=== PATIENT | male | born 1990 | race Caucasian/White ===

== ENCOUNTER 2021-01-23 12:03 | Day surgery (SDC) | payer BC ==
[2021-01-23] MEDS ORDERED: Ondansetron 4 MG/2 ML SDV IVPUSH ONE (12:37)
[2021-01-23] MEDS ORDERED: Sodium Chloride 0.9% 1,000 ML IV STA (12:37)
[2021-01-23] MEDS: Sodium Chloride 0.9% 10 ML Syringe FLUSH PRN ×2 (12:56→13:55)
[2021-01-23] MEDS ORDERED: Diatrizoate Meglumine/Diatrizoate Sodium 37% 120 ML Bottle PO ONE (13:00)
[2021-01-23] MEDS ORDERED: Iopamidol 612 MG/ML 100 ML Bottle IVPUSH ONE (13:00)
[2021-01-23] MEDS ORDERED: Sodium Chloride 0.9% 10 ML Syringe FLUSH ONE (13:00)
[2021-01-23] MEDS ORDERED: Iopamidol 612 MG/ML 50 ML SDV IVPUSH ONE (13:00)
--- NOTE | 2021-01-23 14:25 | CT ---
CT abdomen and pelvis Technique: Multiple axial sections were obtained from above the dome of the diaphragm inferiorly through the pubic symphysis. Intravenous contrast was utilized. Oral contrast is also noted. Delayed images were obtained through the bladder. Reconstructed coronal and sagittal images were obtained. Comparison: No previous abdomen and pelvis imaging is available. Findings: Appendix is seen and appears mildly prominent in size measuring up to 1.0 cm. Mild inflammatory change is seen around the appendix which is compatible with appendicitis. Visualized lung bases show nothing acute. Liver shows no focal abnormality. Spleen appears within normal limits. Adrenal glands show no nodules. Pancreas is within normal limits. Gallbladder contains no calcified gallstones. Abdominal aorta shows no aneurysm. Kidneys show symmetric contrast enhancement with no hydronephrosis or mass. No retroperitoneal adenopathy or mesenteric abnormalities are seen. No pelvic mass or adenopathy is appreciated. Minimal fat-containing umbilical hernia is incidentally noted. Delayed images show contrast within the distal ureters and the bladder. Bone settings were reviewed which show mild scattered degenerative change within the spine. Impression: 1. Findings as described above compatible with early appendicitis. 2. Other normal findings as described above. Results were given to Dr. Nielsen by phone at 2:04 PM MDT. Diagnostic code #5
[2021-01-23] MEDS ORDERED: Piperacillin/Tazobactam 4.5 GM in Sodium Chloride 0.9% 100 ML IV SCH (14:45)
--- NOTE | 2021-01-23 14:54 | EDM.PDOC ---
ED HPI GENERAL MEDICAL PROBLEM - General Chief Complaint: Abdominal Pain Stated Complaint: SENT BY [facility] Time Seen by Provider: 01/23/21 12:13 Source of Information: Reports: Patient, Provider History Limitations: Reports: No Limitations - History of Present Illness INITIAL COMMENTS - FREE TEXT/NARRATIVE: The patient presents from [facility] for right lower abdominal pain and possible appendicitis. He said the pain started yesterday. He has no nausea or vomiting. He has no fever, chills, cough, chest pain, shortness of breath, diarrhea or dysuria. He still has an appendix and gallbladder. Onset: Gradual Duration: Day(s): (2) Location: Reports: Abdomen Quality: Reports: Sharp Severity: Moderate Improves with: Reports: None Worsens with: Reports: None Associated Symptoms: Reports: No Other Symptoms Right Abdominal Pain Score (Numeric/FACES): 6 - Related Data Allergies Allergy/AdvReac Type Severity Reaction Status Date / Time No Known Allergies Allergy Verified 01/23/21 12:14 Home Meds: Home Meds . [No Known Home Meds] 01/23/21 [History] Past Medical History - Past Health History Medical/Surgical History: Denies Medical/Surgical History Social & Family History - Tobacco Use Tobacco Use Status *Q: Current Every Day Tobacco User Years of Tobacco use: 10 Packs/Tins Daily: 1 - Caffeine Use Caffeine Use: Reports: Soda - Recreational Drug Use Recreational Drug Use: No ED ROS GENERAL - Review of Systems Review Of Systems: See Below Constitutional: Reports: No Symptoms HEENT: Reports: No Symptoms Respiratory: Reports: No Symptoms Cardiovascular: Reports: No Symptoms Endocrine: Reports: No Symptoms GI/Abdominal: Reports: Abdominal Pain. Denies: Diarrhea, Nausea, Vomiting : Reports: No Symptoms ED EXAM, GI/ABD - Physical Exam Exam: See Below Exam Limited By: No Limitations General Appearance: Alert, No Apparent Distress Ears: Normal External Exam Nose: Normal Inspection Head: Atraumatic, Normocephalic Neck: Normal Inspection Respiratory/Chest: No Respiratory Distress, Lungs Clear, Normal Breath Sounds Cardiovascular: Regular Rate, Rhythm, No Edema, No Murmur GI/Abdominal Exam: Soft, No Organomegaly, No Mass, Tender (Moderate tenderness to the right lower abdomen) Course - Vital Signs Last Recorded V/S: Last Vital Signs Temp 97.7 F 01/23/21 12:12 Pulse 99 01/23/21 12:12 Resp 19 01/23/21 12:12 BP 131/81 01/23/21 12:12 Pulse Ox 100 01/23/21 12:12 - Orders/Labs/Meds Orders: Active Orders 24 hr Category Date Time Status Peripheral IV Care [RC] . DIRECTED Care 01/23/21 12:38 Active CORONAVIRUS COVID-19 JUSTIN [MOLEC] Stat Lab 01/23/21 14:35 Received Piperacillin/Tazobactam [Piperacil-Tazobact] 4.5 gm Med 01/23/21 14:45 Active Sodium Chloride 0.9% [Normal Saline] 100 ml IV Q8H Sodium Chloride 0.9% [Saline Flush] Med 01/23/21 12:37 Active 10 ml FLUSH ASDIRECTED PRN ED Antiemetic Medication Reflex [OM.PC] Stat Oth 01/23/21 12:38 Ordered Peripheral IV Insertion Adult [OM.PC] Stat Oth 01/23/21 12:37 Ordered Medication Orders Piperacillin Sod/Tazobactam (Sod 4.5 gm/ Sodium Chloride) 100 mls @ 25 mls/hr IV Q8H CHRIS Sodium Chloride (Sodium Chloride 0.9% 10 Ml Syringe) 10 ml FLUSH ASDIRECTED PRN PRN Reason: Keep Vein Open Last Admin: 01/23/21 13:55 Dose: 10 ml Documented by: Admin: 01/23/21 12:56 Dose: 10 ml Documented by: MARKELL Labs: Laboratory Tests 01/23/21 01/23/21 01/23/21 Range/Units 12:55 12:55 13:00 WBC 8.99 (4.23-9.07) K/mm3 RBC 5.10 (4.63-6.08) M/mm3 Hgb 15.0 (13.7-17.5) gm/dl Hct 45.1 (40.1-51.0) % MCV 88.4 (79.0-92.2) fl MCH 29.4 (25.7-32.2) pg MCHC 33.3 (32.2-35.5) g/dl RDW Std Deviation 41.5 (35.1-43.9) fL Plt Count 265 (163-337) K/mm3 MPV 10.2 (9.4-12.3) fl Neut % (Auto) 63.7 (34.0-67.9) % Lymph % (Auto) 25.6 (21.8-53.1) % [place] % (Auto) 8.8 (5.3-12.2) % Eos % (Auto) 1.6 (0.8-7.0) Baso % (Auto) 0.2 (0.1-1.2) % Neut # (Auto) 5.73 H (1.78-5.38) K/mm3 Lymph # (Auto) 2.30 (1.32-3.57) K/mm3 [place] # (Auto) 0.79 (0.30-0.82) K/mm3 Eos # (Auto) 0.14 (0.04-0.54) K/mm3 Baso # (Auto) 0.02 (0.01-0.08) K/mm3 Sodium 143 (136-145) mEq/L Potassium 4.0 (3.5-5.1) mEq/L Chloride 108 H (98-107) mEq/L Carbon Dioxide 28 (21-32) mEq/L Anion Gap 11.0 (5-15) BUN 16 (7-18) mg/dL Creatinine 1.5 H (0.7-1.3) mg/dL Est Cr Clr Drug Dosing 82.20 mL/min Estimated GFR (MDRD) 54 (>60) mL/min BUN/Creatinine Ratio 10.7 L (14-18) Glucose 88 (70-99) mg/dL Calcium 8.6 (8.5-10.1) mg/dL Total Bilirubin 0.4 (0.2-1.0) mg/dL AST 20 (15-37) U/L ALT 46 (16-63) U/L Alkaline Phosphatase 67 (46-116) U/L Total Protein 7.3 (6.4-8.2) g/dl Albumin 3.8 (3.4-5.0) g/dl Globulin 3.5 gm/dL Albumin/Globulin Ratio 1.1 (1-2) Lipase 122 (73-393) U/L Urine Color Yellow (Yellow) Urine Appearance Clear (Clear) Urine pH 6.5 (5.0-8.0) Ur Specific [place] 1.025 (1.005-1.030) Urine Protein Negative (Negative) Urine Glucose (UA) Negative (Negative) Urine Ketones Negative (Negative) Urine Occult Blood Negative (Negative) Urine Nitrite Negative (Negative) Urine Bilirubin Negative (Negative) Urine Urobilinogen 0.2 (0.2-1.0) Ur Leukocyte Esterase Negative (Negative) Urine RBC Not seen (0-5) /hpf Urine WBC Not seen (0-5) /hpf Ur Epithelial Cells 0-5 (0-5) /hpf Urine Bacteria Rare (FEW) /hpf Urine Mucus Not seen (FEW) /hpf Meds: Medications Generic Name Dose Route Start Last Admin Trade Name Freq PRN Reason Stop Dose Admin Piperacillin Sod/Tazobactam 100 mls @ 25 mls/hr 01/23/21 14:45 Sod 4.5 gm/ Sodium Chloride IV Q8H CHRIS Sodium Chloride 10 ml 01/23/21 12:37 01/23/21 13:55 Sodium Chloride 0.9% 10 Ml Syringe FLUSH 10 ml ASDIRECTED PRN Administration Keep Vein Open Discontinued Medications Generic Name Dose Route Start Last Admin Trade Name Freq PRN Reason Stop Dose Admin Diatrizoate Meglum/Diatrizoate Sod 90 ml 01/23/21 13:00 01/23/21 13:56 Diatrizoate Meglumine/Diatrizoate Sodium 37% 120 Ml Bottle PO 01/23/21 13:01 45 ml ONETIME ONE Administration Sodium Chloride 1,000 mls @ 1,000 mls/hr 01/23/21 12:37 01/23/21 12:55 Normal Saline IV 01/23/21 13:36 1,000 mls/hr .BOLUS STA Administration Iopamidol 100 ml 01/23/21 13:00 01/23/21 13:54 Iopamidol 612 Mg/Ml 100 Ml Bottle IVPUSH 01/23/21 13:01 100 ml ONETIME ONE Administration Iopamidol 50 ml 01/23/21 13:00 01/23/21 13:54 Iopamidol 612 Mg/Ml 50 Ml Sdv IVPUSH 01/23/21 13:01 50 ml ONETIME ONE Administration Ondansetron HCl 4 mg 01/23/21 12:37 01/23/21 12:56 Ondansetron 4 Mg/2 Ml Sdv IVPUSH 01/23/21 12:38 4 mg ONETIME ONE Administration Sodium Chloride 10 ml 01/23/21 13:00 01/23/21 13:34 Sodium Chloride 0.9% 10 Ml Syringe FLUSH 01/23/21 13:01 10 ml ONETIME ONE Administration - Re-Assessments/Exams Free Text/Narrative Re-Assessment/Exam: 01/23/21 14:51 I ordered an IV NS 1L bolus, zofran 4mg IV, labs, UA and a CT of his abdomen and pelvis. His CBC and CMP look good. His UA shows no UTI. The CT shows appendix is seen and appears mildly prominent in size measuring up to 1cm. Mild inflammatory change is seen around the appendix which is compatible with appendicitis. I called Dr Travis and she will come see the patient. She requested Zosyn be given so I have ordered that. Departure - Departure Time of Disposition: 15:00 Disposition: DC/Tfer to [facility] Condition: Fair Clinical Impression: Appendicitis Qualifiers: Appendicitis type: acute appendicitis Acute appendicitis type: with localized peritonitis Appendicitis gangrene presence: without gangrene Appendicitis perforation presence: without perforation Appendicitis abscess presence: without abscess Qualified Code(s): K35.30 - Acute appendicitis with localized peritonitis, without perforation or gangrene - Discharge Information Referrals: Robyn Starr PROCUREMENT INSPECTOR [Primary Care Provider] - Sepsis Event Note (ED) - Evaluation Sepsis Screening Result: No Definite Risk - Focused Exam Vital Signs: Vital Signs Temp Pulse Resp BP Pulse Ox 01/23/21 12:12 97.7 F 99 19 131/81 100 - My Orders Last 24 Hours: My Active Orders 01/23/21 12:37 Sodium Chloride 0.9% [Saline Flush] 10 ml FLUSH ASDIRECTED PRN Peripheral IV Insertion Adult [OM.PC] Stat 01/23/21 12:38 Peripheral IV Care [RC] . DIRECTED ED Antiemetic Medication Reflex [OM.PC] Stat 01/23/21 14:35 CORONAVIRUS COVID-19 JUSTIN [MOLEC] Stat 01/23/21 14:45 Piperacillin/Tazobactam [Piperacil-Tazobact] 4.5 gm Sodium Chloride 0.9% [Normal Saline] 100 ml IV Q8H - Assessment/Plan Last 24 Hours: My Active Orders 01/23/21 12:37 Sodium Chloride 0.9% [Saline Flush] 10 ml FLUSH ASDIRECTED PRN Peripheral IV Insertion Adult [OM.PC] Stat 01/23/21 12:38 Peripheral IV Care [RC] . DIRECTED ED Antiemetic Medication Reflex [OM.PC] Stat 01/23/21 14:35 CORONAVIRUS COVID-19 JUSTIN [MOLEC] Stat 01/23/21 14:45 Piperacillin/Tazobactam [Piperacil-Tazobact] 4.5 gm Sodium Chloride 0.9% [Normal Saline] 100 ml IV Q8H
--- NOTE | 2021-01-23 15:06 | PCM.PREANE ---
Preanesthetic Assessment - Procedure Proposed Procedure: Laparoscopic Appendectomy - Anesthesia/Transfusion/Family Hx Anesthesia History: Prior Anesthesia Without Reaction Family History of Anesthesia Reaction: No Transfusion History: No Prior Transfusion(s) Intubation History: Unknown - Review of Systems General: No Symptoms Pulmonary: No Symptoms (Smoker: 5cigarettes/day/ 1/4 can chew per day/ETOH: rarely) Cardiovascular: No Symptoms, Palpitations Gastrointestinal: No Symptoms (gerd/swallows chew juice.), Abdominal Pain (2/10), Diarrhea, Nausea Neurological: No Symptoms Other: Reports: None, Sinus Problem (congestion chronic) - Physical Assessment NPO Status Date: 01/23/21 NPO Status Time: 11:30 Vital Signs: Last Vital Signs Temp 36.5 C 01/23/21 12:12 Pulse 99 01/23/21 12:12 Resp 19 01/23/21 12:12 BP 131/81 01/23/21 12:12 Pulse Ox 100 01/23/21 12:12 Height: 1.88 m Weight: 137.892 kg ASA Class: 3E Mental Status: Alert & Oriented x3 Airway Class: Mallampati = 2 Dentition: Reports: Normal Dentition, Caries Thyro-Mental Finger Breadths: 3 Mouth Opening Finger Breadths: 3 ROM/Head Extension: Full Lungs: Clear to Auscultation, Normal Respiratory Effort Cardiovascular: Regular Rate, Regular Rhythm, No Murmurs - Lab Values: Laboratory Last Values WBC 8.99 K/mm3 (4.23-9.07) 01/23/21 12:55 RBC 5.10 M/mm3 (4.63-6.08) 01/23/21 12:55 Hgb 15.0 gm/dl (13.7-17.5) 01/23/21 12:55 Hct 45.1 % (40.1-51.0) 01/23/21 12:55 MCV 88.4 fl (79.0-92.2) 01/23/21 12:55 MCH 29.4 pg (25.7-32.2) 01/23/21 12:55 MCHC 33.3 g/dl (32.2-35.5) 01/23/21 12:55 RDW Std Deviation 41.5 fL (35.1-43.9) 01/23/21 12:55 Plt Count 265 K/mm3 (163-337) 01/23/21 12:55 MPV 10.2 fl (9.4-12.3) 01/23/21 12:55 Neut % (Auto) 63.7 % (34.0-67.9) 01/23/21 12:55 Lymph % (Auto) 25.6 % (21.8-53.1) 01/23/21 12:55 [place] % (Auto) 8.8 % (5.3-12.2) 01/23/21 12:55 Eos % (Auto) 1.6 (0.8-7.0) 01/23/21 12:55 Baso % (Auto) 0.2 % (0.1-1.2) 01/23/21 12:55 Neut # (Auto) 5.73 K/mm3 (1.78-5.38) H 01/23/21 12:55 Lymph # (Auto) 2.30 K/mm3 (1.32-3.57) 01/23/21 12:55 [place] # (Auto) 0.79 K/mm3 (0.30-0.82) 01/23/21 12:55 Eos # (Auto) 0.14 K/mm3 (0.04-0.54) 01/23/21 12:55 Baso # (Auto) 0.02 K/mm3 (0.01-0.08) 01/23/21 12:55 Sodium 143 mEq/L (136-145) 01/23/21 12:55 Potassium 4.0 mEq/L (3.5-5.1) 01/23/21 12:55 Chloride 108 mEq/L (98-107) H 01/23/21 12:55 Carbon Dioxide 28 mEq/L (21-32) 01/23/21 12:55 Anion Gap 11.0 (5-15) 01/23/21 12:55 BUN 16 mg/dL (7-18) 01/23/21 12:55 Creatinine 1.5 mg/dL (0.7-1.3) H 01/23/21 12:55 Est Cr Clr Drug Dosing 82.20 mL/min 01/23/21 12:55 Estimated GFR (MDRD) 54 mL/min (>60) 01/23/21 12:55 BUN/Creatinine Ratio 10.7 (14-18) L 01/23/21 12:55 Glucose 88 mg/dL (70-99) 01/23/21 12:55 Calcium 8.6 mg/dL (8.5-10.1) 01/23/21 12:55 Total Bilirubin 0.4 mg/dL (0.2-1.0) 01/23/21 12:55 AST 20 U/L (15-37) 01/23/21 12:55 ALT 46 U/L (16-63) 01/23/21 12:55 Alkaline Phosphatase 67 U/L (46-116) 01/23/21 12:55 Total Protein 7.3 g/dl (6.4-8.2) 01/23/21 12:55 Albumin 3.8 g/dl (3.4-5.0) 01/23/21 12:55 Globulin 3.5 gm/dL 01/23/21 12:55 Albumin/Globulin Ratio 1.1 (1-2) 01/23/21 12:55 Lipase 122 U/L (73-393) 01/23/21 12:55 Urine Color Yellow (Yellow) 01/23/21 13:00 Urine Appearance Clear (Clear) 01/23/21 13:00 Urine pH 6.5 (5.0-8.0) 01/23/21 13:00 Ur Specific [place] 1.025 (1.005-1.030) 01/23/21 13:00 Urine Protein Negative (Negative) 01/23/21 13:00 Urine Glucose (UA) Negative (Negative) 01/23/21 13:00 Urine Ketones Negative (Negative) 01/23/21 13:00 Urine Occult Blood Negative (Negative) 01/23/21 13:00 Urine Nitrite Negative (Negative) 01/23/21 13:00 Urine Bilirubin Negative (Negative) 01/23/21 13:00 Urine Urobilinogen 0.2 (0.2-1.0) 01/23/21 13:00 Ur Leukocyte Esterase Negative (Negative) 01/23/21 13:00 Urine RBC Not seen /hpf (0-5) 01/23/21 13:00 Urine WBC Not seen /hpf (0-5) 01/23/21 13:00 Ur Epithelial Cells 0-5 /hpf (0-5) 01/23/21 13:00 Urine Bacteria Rare /hpf (FEW) 01/23/21 13:00 Urine Mucus Not seen /hpf (FEW) 01/23/21 13:00 Above labs reviewed and noted and within acceptable ranges to proceed with procedure. - Allergies Allergies/Adverse Reactions: Allergies Allergy/AdvReac Type Severity Reaction Status Date / Time No Known Allergies Allergy Verified 01/23/21 12:14 - Anesthesia Plan Pre-Op Medication Ordered: None - Acknowledgements Anesthesia Type Planned: General Anesthesia Pt an Appropriate Candidate for the Planned Anesthesia: Yes Alternatives and Risks of Anesthesia Discussed w Pt/Guardian: Yes Pt/Guardian Understands and Agrees with Anesthesia Plan: Yes PreAnesthesia Questionnaire - Past Health History Medical/Surgical History: Denies Medical/Surgical History - SUBSTANCE USE Tobacco Use Status *Q: Current Every Day Tobacco User Tobacco Use Within Last Twelve Months: Cigarettes, Snuff/Dip Recreational Drug Use History: No - HOME MEDS Home Medications: Home Meds . [No Known Home Meds] 01/23/21 [History] - CURRENT (IN HOUSE) MEDS Current Meds: Current Medications Piperacillin Sod/Tazobactam (Sod 4.5 gm/ Sodium Chloride) 100 mls @ 25 mls/hr IV Q8H CHRIS Last Admin: 01/23/21 14:59 Dose: 25 mls/hr Documented by: Sodium Chloride (Sodium Chloride 0.9% 10 Ml Syringe) 10 ml FLUSH ASDIRECTED PRN PRN Reason: Keep Vein Open Last Admin: 01/23/21 13:55 Dose: 10 ml Documented by: Discontinued Medications Diatrizoate Meglum/Diatrizoate Sod (Diatrizoate Meglumine/Diatrizoate Sodium 37% 120 Ml Bottle) 90 ml PO ONETIME ONE Stop: 01/23/21 13:01 Last Admin: 01/23/21 13:56 Dose: 45 ml Documented by: Sodium Chloride (Normal Saline) 1,000 mls @ 1,000 mls/hr IV .BOLUS STA Stop: 01/23/21 13:36 Last Admin: 01/23/21 12:55 Dose: 1,000 mls/hr Documented by: Iopamidol (Iopamidol 612 Mg/Ml 100 Ml Bottle) 100 ml IVPUSH ONETIME ONE Stop: 01/23/21 13:01 Last Admin: 01/23/21 13:54 Dose: 100 ml Documented by: Iopamidol (Iopamidol 612 Mg/Ml 50 Ml Sdv) 50 ml IVPUSH ONETIME ONE Stop: 01/23/21 13:01 Last Admin: 01/23/21 13:54 Dose: 50 ml Documented by: Ondansetron HCl (Ondansetron 4 Mg/2 Ml Sdv) 4 mg IVPUSH ONETIME ONE Stop: 01/23/21 12:38 Last Admin: 01/23/21 12:56 Dose: 4 mg Documented by: Sodium Chloride (Sodium Chloride 0.9% 10 Ml Syringe) 10 ml FLUSH ONETIME ONE Stop: 01/23/21 13:01 Last Admin: 01/23/21 13:34 Dose: 10 ml Documented by:
[2021-01-23] MEDS ORDERED: Lidocaine 1% with EPINEPHrine 1:100,000 10 ML MDV ONE (15:10)
[2021-01-23] MEDS ORDERED: Bupivacaine 0.5%/EPINEPHrine 1:200,000 50 ML MDV ONE (15:11)
[2021-01-23] MEDS ORDERED: Succinylcholine/Sod PF 100 MG/5 ML SYRINGE IV ONE (15:21)
[2021-01-23] MEDS ORDERED: Dexamethasone 4 MG/ML 5 ML MDV ONE (15:21)
[2021-01-23] MEDS ORDERED: Ketorolac 15 MG/ML SDV ONE (15:21)
[2021-01-23] MEDS ORDERED: HYDROmorphone 0.5 MG/0.5 ML Syringe ONE ×2 (15:21→17:41)
[2021-01-23] MEDS ORDERED: Lidocaine 1% 4 ML ONE (15:21)
[2021-01-23] MEDS ORDERED: Rocuronium 50 MG/5 ML Vial ONE (15:21)
[2021-01-23] MEDS ORDERED: Ondansetron 4 MG/2 ML SDV ONE (15:21)
[2021-01-23] MEDS ORDERED: Lactated Ringers 2,000 ML ONE (15:21)
[2021-01-23] MEDS ORDERED: Midazolam 1 MG/ML 2 ML SDV ONE (15:23)
[2021-01-23] MEDS ORDERED: Propofol 200 MG/20 ML SDV ONE (15:23)
[2021-01-23] MEDS ORDERED: fentaNYL 250 MCG/5 ML SDV ONE (15:23)
[2021-01-23] MEDS ORDERED: Albuterol 0.083% 2.5 MG/3 ML Neb Soln NEB ONE (16:04)
[2021-01-23] MEDS ORDERED: Albuterol 0.083% 2.5 MG/3 ML Neb Soln ONE ×2 (16:05→18:11)
--- NOTE | 2021-01-23 17:01 | PCM.HP.2 ---
H&P History of Present Illness - General Date of Service: 01/23/21 Admit Problem/Dx: Admission Diagnosis/Problem Admission Diagnosis/Problem Appendicitis Source of Information: Patient, Provider History Limitations: Reports: No Limitations - History of Present Illness Initial Comments - Free Text/Narative: The patient is a 30-year-old gentleman who presented to the ED after transfer from an outside facility for concerns of appendicitis. He was evaluated in the emergency department with a CT scan which had findings of acute appendicitis. The patient reports a 1 day history of abdominal pain he reports the pain was in the lower abdomen but then localized to the right lower quadrant. He had associated nausea. He denies any vomiting. His last bowel movement was watery after receiving oral contrast. He denies any fever. He denies any change in appetite. Right Abdominal Pain Score (Numeric/FACES): 6 - Related Data Allergies/Adverse Reactions: Allergies Allergy/AdvReac Type Severity Reaction Status Date / Time No Known Allergies Allergy Verified 01/23/21 12:14 Home Medications: Home Meds Acetaminophen/oxyCODONE [Percocet 325-5 MG] 1 each PO Q6H PRN 14 Days #20 tab 01/23/21 [Rx] Docusate Sodium [Colace] 100 mg PO BID 20 Days #40 cap 01/23/21 [Rx] Ibuprofen 600 mg PO Q6H PRN 14 Days #60 tablet 01/23/21 [Rx] Past Medical History - Past Health History Medical/Surgical History: Denies Medical/Surgical History Social & Family History - Family History Cardiac: Denies: DE Neurological: Reports: CVA Oncologic: Reports: None - Tobacco Use Tobacco Use Status *Q: Current Every Day Tobacco User Years of Tobacco use: 10 Packs/Tins Daily: 1 - Caffeine Use Caffeine Use: Reports: Soda - Recreational Drug Use Recreational Drug Use: No H&P Review of Systems - Review of Systems: Review Of Systems: See Below General: Denies: Fever, Chills HEENT: Reports: No Symptoms Pulmonary: Reports: No Symptoms Cardiovascular: Reports: No Symptoms Gastrointestinal: Reports: Abdominal Pain Genitourinary: Reports: No Symptoms Exam - Exam Exam: See Below - Vital Signs Vital Signs: Last Vital Signs Temp 36.5 C 01/23/21 12:12 Pulse 99 01/23/21 12:12 Resp 19 01/23/21 12:12 BP 131/81 01/23/21 12:12 Pulse Ox 100 01/23/21 12:12 Weight: 137.892 kg - Exam Quality Assessment: No: Supplemental Oxygen General: Alert, Oriented HEENT: Conjunctiva Clear, EOMI Neck: Supple Lungs: Normal Respiratory Effort Cardiovascular: Regular Rate, Regular Rhythm GI/Abdominal Exam: Soft, No Distention, Distended, Rebound ( right lower quadrant), Tender (In the right lower quadrant) Extremities: No Pedal Edema Peripheral Pulses: 2+: Dorsalis Pedis (L), Dorsalis Pedis (R) Skin: Dry, Intact Neurological: Cranial Nerves Intact Neuro Extensive - Mental Status: Oriented x3, Normal Mood/Affect - Patient Data Lab Results Last 24 hrs: Laboratory Results - last 24 hr 01/23/21 01/23/21 01/23/21 Range/Units 12:55 12:55 13:00 WBC 8.99 (4.23-9.07) K/mm3 RBC 5.10 (4.63-6.08) M/mm3 Hgb 15.0 (13.7-17.5) gm/dl Hct 45.1 (40.1-51.0) % MCV 88.4 (79.0-92.2) fl MCH 29.4 (25.7-32.2) pg MCHC 33.3 (32.2-35.5) g/dl RDW Std Deviation 41.5 (35.1-43.9) fL Plt Count 265 (163-337) K/mm3 MPV 10.2 (9.4-12.3) fl Neut % (Auto) 63.7 (34.0-67.9) % Lymph % (Auto) 25.6 (21.8-53.1) % [place] % (Auto) 8.8 (5.3-12.2) % Eos % (Auto) 1.6 (0.8-7.0) Baso % (Auto) 0.2 (0.1-1.2) % Neut # (Auto) 5.73 H (1.78-5.38) K/mm3 Lymph # (Auto) 2.30 (1.32-3.57) K/mm3 [place] # (Auto) 0.79 (0.30-0.82) K/mm3 Eos # (Auto) 0.14 (0.04-0.54) K/mm3 Baso # (Auto) 0.02 (0.01-0.08) K/mm3 Sodium 143 (136-145) mEq/L Potassium 4.0 (3.5-5.1) mEq/L Chloride 108 H (98-107) mEq/L Carbon Dioxide 28 (21-32) mEq/L Anion Gap 11.0 (5-15) BUN 16 (7-18) mg/dL Creatinine 1.5 H (0.7-1.3) mg/dL Est Cr Clr Drug Dosing 82.20 mL/min Estimated GFR (MDRD) 54 (>60) mL/min BUN/Creatinine Ratio 10.7 L (14-18) Glucose 88 (70-99) mg/dL Calcium 8.6 (8.5-10.1) mg/dL Total Bilirubin 0.4 (0.2-1.0) mg/dL AST 20 (15-37) U/L ALT 46 (16-63) U/L Alkaline Phosphatase 67 (46-116) U/L Total Protein 7.3 (6.4-8.2) g/dl Albumin 3.8 (3.4-5.0) g/dl Globulin 3.5 gm/dL Albumin/Globulin Ratio 1.1 (1-2) Lipase 122 (73-393) U/L Urine Color Yellow (Yellow) Urine Appearance Clear (Clear) Urine pH 6.5 (5.0-8.0) Ur Specific [place] 1.025 (1.005-1.030) Urine Protein Negative (Negative) Urine Glucose (UA) Negative (Negative) Urine Ketones Negative (Negative) Urine Occult Blood Negative (Negative) Urine Nitrite Negative (Negative) Urine Bilirubin Negative (Negative) Urine Urobilinogen 0.2 (0.2-1.0) Ur Leukocyte Esterase Negative (Negative) Urine RBC Not seen (0-5) /hpf Urine WBC Not seen (0-5) /hpf Ur Epithelial Cells 0-5 (0-5) /hpf Urine Bacteria Rare (FEW) /hpf Urine Mucus Not seen (FEW) /hpf SARS-CoV-2 RNA (JUSTIN) (NEGATIVE) 01/23/21 Range/Units 14:35 WBC (4.23-9.07) K/mm3 RBC (4.63-6.08) M/mm3 Hgb (13.7-17.5) gm/dl Hct (40.1-51.0) % MCV (79.0-92.2) fl MCH (25.7-32.2) pg MCHC (32.2-35.5) g/dl RDW Std Deviation (35.1-43.9) fL Plt Count (163-337) K/mm3 MPV (9.4-12.3) fl Neut % (Auto) (34.0-67.9) % Lymph % (Auto) (21.8-53.1) % [place] % (Auto) (5.3-12.2) % Eos % (Auto) (0.8-7.0) Baso % (Auto) (0.1-1.2) % Neut # (Auto) (1.78-5.38) K/mm3 Lymph # (Auto) (1.32-3.57) K/mm3 [place] # (Auto) (0.30-0.82) K/mm3 Eos # (Auto) (0.04-0.54) K/mm3 Baso # (Auto) (0.01-0.08) K/mm3 Sodium (136-145) mEq/L Potassium (3.5-5.1) mEq/L Chloride (98-107) mEq/L Carbon Dioxide (21-32) mEq/L Anion Gap (5-15) BUN (7-18) mg/dL Creatinine (0.7-1.3) mg/dL Est Cr Clr Drug Dosing mL/min Estimated GFR (MDRD) (>60) mL/min BUN/Creatinine Ratio (14-18) Glucose (70-99) mg/dL Calcium (8.5-10.1) mg/dL Total Bilirubin (0.2-1.0) mg/dL AST (15-37) U/L ALT (16-63) U/L Alkaline Phosphatase (46-116) U/L Total Protein (6.4-8.2) g/dl Albumin (3.4-5.0) g/dl Globulin gm/dL Albumin/Globulin Ratio (1-2) Lipase (73-393) U/L Urine Color (Yellow) Urine Appearance (Clear) Urine pH (5.0-8.0) Ur Specific [place] (1.005-1.030) Urine Protein (Negative) Urine Glucose (UA) (Negative) Urine Ketones (Negative) Urine Occult Blood (Negative) Urine Nitrite (Negative) Urine Bilirubin (Negative) Urine Urobilinogen (0.2-1.0) Ur Leukocyte Esterase (Negative) Urine RBC (0-5) /hpf Urine WBC (0-5) /hpf Ur Epithelial Cells (0-5) /hpf Urine Bacteria (FEW) /hpf Urine Mucus (FEW) /hpf SARS-CoV-2 RNA (JUSTIN) Negative (NEGATIVE) Result Diagrams: 01/23/21 12:55 01/23/21 12:55 Sepsis Event Note - Evaluation Sepsis Screening Result: No Definite Risk - Focused Exam Vital Signs: Vital Signs Temp Pulse Resp BP Pulse Ox 01/23/21 12:12 36.5 C 99 19 131/81 100 *Q Meaningful Use (ADM) - VTE Risk Assess *Q Each Risk Factor Represents 1 Point: Minor Surgery Planned, Obesity ( BMI > 25 kg/m2) Total Score 1 Point Risk Factors: 2 - Problem List (1) Appendicitis SNOMED Code(s): 18106165 ICD Code: K37 - UNSPECIFIED APPENDICITIS Status: Acute Current Visit: Yes Qualifiers: Appendicitis type: acute appendicitis Acute appendicitis type: with localiz ed peritonitis Appendicitis gangrene presence: without gangrene Appendicitis perforation presence: without perforation Appendicitis abscess presence: without abscess Qualified Code(s): K35.30 - Acute appendicitis with localized peritonitis, without perforation or gangrene Problem List Initiated/Reviewed/Updated: Yes Orders Last 24hrs: Active Orders 24 hr Category Date Time Status Patient Status [ADT] Routine ADT 01/23/21 15:04 Active Peripheral IV Care [RC] . DIRECTED Care 01/23/21 12:38 Active RT Aerosol Therapy [RC] ASDIRECTED Care 01/23/21 16:04 Active Piperacillin/Tazobactam [Piperacil-Tazobact] 4.5 gm Med 01/23/21 14:45 Active Sodium Chloride 0.9% [Normal Saline] 100 ml IV Q8H Sodium Chloride 0.9% [Saline Flush] Med 01/23/21 12:37 Active 10 ml FLUSH ASDIRECTED PRN ED Antiemetic Medication Reflex [OM.PC] Stat Oth 01/23/21 12:38 Ordered Peripheral IV Insertion Adult [OM.PC] Stat Oth 01/23/21 12:37 Ordered Schedule Procedure [COMM] Stat Oth 01/23/21 15:04 Ordered Medication Orders Piperacillin Sod/Tazobactam (Sod 4.5 gm/ Sodium Chloride) 100 mls @ 25 mls/hr IV Q8H [facility] Last Admin: 01/23/21 14:59 Dose: 25 mls/hr Documented by: MARKELL Sodium Chloride (Sodium Chloride 0.9% 10 Ml Syringe) 10 ml FLUSH ASDIRECTED PRN PRN Reason: Keep Vein Open Last Admin: 01/23/21 13:55 Dose: 10 ml Documented by: Admin: 01/23/21 12:56 Dose: 10 ml Documented by: MARKELL Assessment/Plan Comment:: 30-year-old gentleman with acute appendicitis -We discussed a laparoscopic appendectomy with possible conversion to open. Discussed risk of bleeding, staple line failure, injury to surrounding bowel. His written consent was obtained -IV Zosyn administered in the emergency department -N.p.o. with IV fluid resuscitation -We will assess need for inpatient stay based on operative findings Mercedes Potter MD General Surgery - Mortality Measure Prognosis:: Good
[2021-01-23] MEDS ORDERED: HYDROmorphone 0.5 MG/0.5 ML Syringe IVPUSH PRN (17:24)
[2021-01-23] MEDS ORDERED: fentaNYL 100 MCG/2 ML SDV IVPUSH PRN (17:24)
[2021-01-23] MEDS ORDERED: Albuterol 0.083% 2.5 MG/3 ML Neb Soln NEB PRN (17:24)
[2021-01-23] MEDS ORDERED: ePHEDrine 50 MG/ML SDV IVPUSH PRN (17:24)
[2021-01-23] MEDS ORDERED: diphenhydrAMINE 50 MG/ML SDV IVPUSH PRN (17:24)
--- NOTE | 2021-01-23 18:08 | PCM.OPNOTE ---
- General Post-Op/Procedure Note Date of Surgery/Procedure: 01/23/21 Operative Procedure(s): laparoscopic appendectomy Findings: acute appendicitis, not ruptured Pre Op Diagnosis: Acute appendicitis Post-Op Diagnosis: Same Anesthesia Technique: General ET Tube, Local Primary Surgeon: Mercedes Potter Anesthesia Provider: Karen Agarwal Pathology: Appendix Fluid Replacement, Intraop: 700 Output, Urine Amount: 0 EBL in mLs: 5 Complications: None apparent Condition: Stable
--- NOTE | 2021-01-23 18:12 | PCM.PRNOTE ---
- Free Text/Narrative Note: Operative Report Date of surgery: January 23, 2021 Preoperative diagnosis: acute appendicitis. Postoperative diagnosis: same Procedure performed: laparoscopic appendectomy Surgeon: Dr. Mercedes Potter Anesthesia: General Patient Care Assistant: Karen Agarwal CRNA Estimated blood loss [5 mL] IV fluids: 700 mL Urine output: None Drains and lines: None Findings: 1. Acute appendicitis, not ruptured 2. Right indirect inguinal hernia Pathology: Appendix Indications for procedure: The patient is a 30-year-old gentleman who presented to the emergency department after transfer from outside facility for findings of acute appendicitis. He had CT confirmed dilated appendix with surrounding inflammatory fat stranding. He was counseled for laparoscopic appendectomy with possible conversion to open. His written consent was obtained after discussing risks of bleeding and staple line failure as well as injury to surrounding bowel. Description of procedure: The patient was taken back to the operating room and placed in supine position on the operating table. SCD boots were in place and functional prior to the start of the procedure. Preoperative antibiotics were administered The patient had successful induction of general anesthesia and was intubated without difficulty. Pt was then prepped and draped in standard surgical fashion and a timeout was performed. We began by making a 15 mm incision in the infraumbilical skin and deepened down to level of the fascia which was then grasped and incised sharply. We entered the peritoneum and then placed stay sutures of 0 Vicryl on the fascial edges. A 12 mm [place] port was then placed into the umbilicus and the balloon was inflated. The abdomen was insufflated to 15 mmHg a 5 mm camera was inserted. There was no evidence of any injury created from entry into the abdomen. A TA P block was performed using mixed 1% lidocaine with epinephrine and 0.5% bupivacaine with epinephrine . We then proceeded to place a 5 mm port under direct visualization in the suprapubic midline and an additional 5mm port in the left lower quadrant. The patient was then positioned in Trendelenburg with right side elevated and we proceeded to mobilize the appendix. The appendix was adherent to the right lateral abdominal wall. There was no significant fluid in the abdomen, the patient did have an incidentally noted right inguinal hernia. His left inguinal area seem to be well fixed from the previous hernia repair. The appendix was then grasped and with blunt dissection was brought into the surgical field. The mesoappendix dissected from the appendix with the LigaSure. The appendix was then taken with a tissue staple load. The specimen was in place in the Endo Catch bag. We then inspected and removed any blood in the area. There was no active bleeding at the end of this case. The abdomen was then desufflated and the umbilical fascia closed with 0 Vicryl sutures and the stay sutures were tied, effectively closing the umbilical port site. The skin was then reapproximated at all port sites using a 4-0 Monocryl subcutaneous stitch and covered with Dermabond surgical glue. The patient tolerated the procedure. He was extubated and transported to the PACU in stable condition. All sponge and needle counts were correct. Mercedes Potter MD General Surgery
[2021-01-23] MEDS ORDERED: Meperidine 50 MG/ML Vial IVPUSH PRN (18:24)
--- NOTE | 2021-01-23 18:24 | PCM.POSTAN ---
POST ANESTHESIA ASSESSMENT - MENTAL STATUS Mental Status: Alert - VITAL SIGNS Vital Signs: Last Vital Signs Temp 97.3 01/23/21 181 Pulse 99 01/23/21 1813 Resp 17 01/23/21 1813 BP 152/72 01/23/21 1813 Pulse Ox 108 01/23/21 181 - RESPIRATORY Respiratory Status: Respiratory Rate WNL, Airway Patent, O2 Saturation Stable, Supplemental Oxygen - CARDIOVASCULAR CV Status: Pulse Rate WNL, Blood Pressure Stable - GASTROINTESTINAL GI Status: No Symptoms - POST OP HYDRATION Hydration Status: Adequate & Stable
--- NOTE | 2021-01-23 18:35 | PCM48HPAN ---
Post Anesthesia Note - EVALUATION WITHIN 48HRS OF ANESTHETIC Vital Signs in Normal Range: Yes Patient Participated in Evaluation: Yes Respiratory Function Stable: Yes Airway Patent: Yes Cardiovascular Function Stable: Yes Hydration Status Stable: Yes Pain Control Satisfactory: Yes Nausea and Vomiting Control Satisfactory: Yes Mental Status Recovered: Yes Vital Signs: Last Vital Signs Temp 36.5 C 01/23/21 12:12 Pulse 99 01/23/21 12:12 Resp 19 01/23/21 12:12 BP 131/81 01/23/21 12:12 Pulse Ox 100 01/23/21 12:12
== END 2021-01-23 19:45 | disposition home or self-care (01) ==
LOC: JD.ED 12:03 → JD.SDS 15:04
PROVIDERS: ATTEND Surgery
DX: K35.30 Acute appendicitis with localized peritonitis, without perforation or gangrene (principal); F17.210 Nicotine dependence, cigarettes, uncomplicated; Z01.812 Encounter for preprocedural laboratory examination; Z79.899 Other long term (current) drug therapy; Z20.822 Contact with and (suspected) exposure to COVID-19
CPT/HCPCS: 36415; 44970; 74177; 80053; 81001; 83690; 85025; 87635; 96374; 96375; 99285; J0330; J1100; J1170; J1885; J2250; J2405; J2543; J2704; J2710; J3010; J3490; J7030; J7120; Q9963; Q9967; 00840; 99284; J2370; U0002

== ENCOUNTER 2025-05-01 09:48 | Inpatient (IN) | payer BC ==
[2025-05-01] MEDS ORDERED: Sodium Chloride 0.9% 10 ML Syringe FLUSH PRN (10:15)
[2025-05-01 10:35] LABS: BASOPHILS ABSOLUTE AUTO 0.0 K/mm3 (0.0-0.2); BASOPHILS PERCENT AUTO 0.3 % (0.0-1.0); EOSINOPHILS ABSOLUTE AUTO 0.0 K/mm3 (0.0-0.4); EOSINOPHILS PERCENT AUTO 0.3 % (0.0-6.0); IMMATURE GRAN ABSOLUTE AUTO 0.04 K/mm3 (0.00-0.05); IMMATURE GRAN PERCENT AUTO 0.3 % (0.0-0.4); LYMPHOCYTES ABSOLUTE AUTO 1.8 K/mm3 (1.0-4.8); LYMPHOCYTES PERCENT AUTO 13.1 % (24.0-44.0); MEAN PLATELET VOLUME 9.8 fl (9.4-12.4); MONOCYTES ABSOLUTE AUTO 0.9 K/mm3 (0.0-0.8); MONOCYTES PERCENT AUTO 6.7 % (0.0-8.0); NEUTROPHILS ABSOLUTE AUTO 11.1 K/mm3 (1.8-7.7); NEUTROPHILS PERCENT AUTO 79.3 % (41.0-71.0); NRBC ABSOLUTE 0.00 (0.00-0.02); NRBC PERCENT 0.0 % (0.0-0.2); PLATELET COUNT,PLT 250 K/mm3 (150-400); RED BLOOD CELL COUNT 5.29 M/mm3 (4.52-5.90); WHITE BLOOD CELL COUNT,WBC 14.01 K/mm3 (3.9-11.3)
[2025-05-01 10:37] LABS: APPEARANCE,URINE CLEAR (Clear); GLUCOSE,URINE NEGATIVE (Negative); OCCULT BLOOD,URINE TRACE-INTACT (Negative)
[2025-05-01] MEDS: Sodium Chloride 0.9% 10 ML Syringe FLUSH PRN (10:44)
[2025-05-01] MEDS: Iopamidol 612 MG/ML 100 ML Bottle IVPUSH ONE (10:44)
[2025-05-01 11:02] LABS: A/G RATIO 1.2 (1-2); ALANINE AMINOTRANSFERASE,ALT 89.0 U/L (16-63); ASPARTATE AMNIOTRANSFERASE,AST 28.0 U/L (15-37); BILIRUBIN TOTAL 0.6 mg/dL (0.2-1.0); BLOOD UREA NITROGEN,BUN 22.0 mg/dL (7-18); CARBON DIOXIDE,CO2 25.0 mEq/L (21-32); CHLORIDE,CL 107.0 mEq/L (98-107); CREATININE 1.1 mg/dL (0.7-1.3); EST CRCL DRUG DOSING (CG) 110.96 mL/min; ESTIMATED GFR 89.0 mL/min (>60); GLUCOSE RANDOM 98.0 mg/dL (70-99); POTASSIUM,K 4.2 mEq/L (3.5-5.1); PROTEIN TOTAL,TP 7.6 g/dl (6.4-8.2); SODIUM,NA 140.0 mEq/L (136-145)
[2025-05-01 11:04] LABS: SQUAMOUS EPITHELIAL CELLS,UR 0-5 /hpf (0-5)
[2025-05-01] MEDS ORDERED: Naloxone 0.4 MG/ML SDV IVPUSH PRN (13:32)
[2025-05-01] MEDS: Lactated Ringers 1,000 ML IV SCH (13:33)
[2025-05-01] MEDS: Ketorolac 30 MG/ML SDV IVPUSH PRN (16:22)
[2025-05-02 04:11] LABS: BASOPHILS ABSOLUTE AUTO 0.0 K/mm3 (0.0-0.2); BASOPHILS PERCENT AUTO 0.2 % (0.0-1.0); EOSINOPHILS ABSOLUTE AUTO 0.0 K/mm3 (0.0-0.4); EOSINOPHILS PERCENT AUTO 0.2 % (0.0-6.0); IMMATURE GRAN ABSOLUTE AUTO 0.04 K/mm3 (0.00-0.05); IMMATURE GRAN PERCENT AUTO 0.3 % (0.0-0.4); LYMPHOCYTES ABSOLUTE AUTO 2.1 K/mm3 (1.0-4.8); LYMPHOCYTES PERCENT AUTO 15.9 % (24.0-44.0); MEAN PLATELET VOLUME 10.3 fl (9.4-12.4); MONOCYTES ABSOLUTE AUTO 1.0 K/mm3 (0.0-0.8); MONOCYTES PERCENT AUTO 7.8 % (0.0-8.0); NEUTROPHILS ABSOLUTE AUTO 9.8 K/mm3 (1.8-7.7); NEUTROPHILS PERCENT AUTO 75.6 % (41.0-71.0); NRBC ABSOLUTE 0.00 (0.00-0.02); NRBC PERCENT 0.0 % (0.0-0.2); PLATELET COUNT,PLT 206 K/mm3 (150-400); RED BLOOD CELL COUNT 4.53 M/mm3 (4.52-5.90); WHITE BLOOD CELL COUNT,WBC 12.91 K/mm3 (3.9-11.3)
[2025-05-02 04:31] LABS: A/G RATIO 1.0 (1-2); ALANINE AMINOTRANSFERASE,ALT 55.0 U/L (16-63); ASPARTATE AMNIOTRANSFERASE,AST 17.0 U/L (15-37); BILIRUBIN TOTAL 1.2 mg/dL (0.2-1.0); BLOOD UREA NITROGEN,BUN 16.0 mg/dL (7-18); CARBON DIOXIDE,CO2 26.0 mEq/L (21-32); CHLORIDE,CL 105.0 mEq/L (98-107); CREATININE 1.2 mg/dL (0.7-1.3); EST CRCL DRUG DOSING (CG) 96.18 mL/min; ESTIMATED GFR 80.0 mL/min (>60); GLUCOSE RANDOM 102.0 mg/dL (70-99); POTASSIUM,K 3.8 mEq/L (3.5-5.1); PROTEIN TOTAL,TP 6.6 g/dl (6.4-8.2); SODIUM,NA 139.0 mEq/L (136-145)
[2025-05-03 04:44] LABS: BASOPHILS ABSOLUTE AUTO 0.0 K/mm3 (0.0-0.2); BASOPHILS PERCENT AUTO 0.4 % (0.0-1.0); EOSINOPHILS ABSOLUTE AUTO 0.1 K/mm3 (0.0-0.4); EOSINOPHILS PERCENT AUTO 1.0 % (0.0-6.0); IMMATURE GRAN ABSOLUTE AUTO 0.03 K/mm3 (0.00-0.05); IMMATURE GRAN PERCENT AUTO 0.3 % (0.0-0.4); LYMPHOCYTES ABSOLUTE AUTO 2.1 K/mm3 (1.0-4.8); LYMPHOCYTES PERCENT AUTO 20.8 % (24.0-44.0); MEAN PLATELET VOLUME 10.0 fl (9.4-12.4); MONOCYTES ABSOLUTE AUTO 0.8 K/mm3 (0.0-0.8); MONOCYTES PERCENT AUTO 8.4 % (0.0-8.0); NEUTROPHILS ABSOLUTE AUTO 6.9 K/mm3 (1.8-7.7); NEUTROPHILS PERCENT AUTO 69.1 % (41.0-71.0); NRBC ABSOLUTE 0.00 (0.00-0.02); NRBC PERCENT 0.0 % (0.0-0.2); PLATELET COUNT,PLT 200 K/mm3 (150-400); RED BLOOD CELL COUNT 4.26 M/mm3 (4.52-5.90); WHITE BLOOD CELL COUNT,WBC 9.94 K/mm3 (3.9-11.3)
[2025-05-03 05:16] LABS: A/G RATIO 0.8 (1-2); ALANINE AMINOTRANSFERASE,ALT 47.0 U/L (16-63); ASPARTATE AMNIOTRANSFERASE,AST 14.0 U/L (15-37); BILIRUBIN TOTAL 0.7 mg/dL (0.2-1.0); BLOOD UREA NITROGEN,BUN 10.0 mg/dL (7-18); CARBON DIOXIDE,CO2 25.0 mEq/L (21-32); CHLORIDE,CL 107.0 mEq/L (98-107); CREATININE 1.1 mg/dL (0.7-1.3); EST CRCL DRUG DOSING (CG) 104.92 mL/min; ESTIMATED GFR 89.0 mL/min (>60); GLUCOSE RANDOM 91.0 mg/dL (70-99); POTASSIUM,K 4.0 mEq/L (3.5-5.1); PROTEIN TOTAL,TP 6.7 g/dl (6.4-8.2); SODIUM,NA 141.0 mEq/L (136-145)
[2025-05-04 04:35] VITALS: BP 117/65; PULSE 91
[2025-05-04 05:33] LABS: BASOPHILS ABSOLUTE AUTO 0.1 K/mm3 (0.0-0.2); BASOPHILS PERCENT AUTO 0.6 % (0.0-1.0); EOSINOPHILS ABSOLUTE AUTO 0.1 K/mm3 (0.0-0.4); EOSINOPHILS PERCENT AUTO 1.4 % (0.0-6.0); IMMATURE GRAN ABSOLUTE AUTO 0.02 K/mm3 (0.00-0.05); IMMATURE GRAN PERCENT AUTO 0.2 % (0.0-0.4); LYMPHOCYTES ABSOLUTE AUTO 2.2 K/mm3 (1.0-4.8); LYMPHOCYTES PERCENT AUTO 25.0 % (24.0-44.0); MEAN PLATELET VOLUME 10.2 fl (9.4-12.4); MONOCYTES ABSOLUTE AUTO 0.7 K/mm3 (0.0-0.8); MONOCYTES PERCENT AUTO 8.2 % (0.0-8.0); NEUTROPHILS ABSOLUTE AUTO 5.7 K/mm3 (1.8-7.7); NEUTROPHILS PERCENT AUTO 64.6 % (41.0-71.0); NRBC ABSOLUTE 0.00 (0.00-0.02); NRBC PERCENT 0.0 % (0.0-0.2); PLATELET COUNT,PLT 244 K/mm3 (150-400); RED BLOOD CELL COUNT 4.58 M/mm3 (4.52-5.90); WHITE BLOOD CELL COUNT,WBC 8.88 K/mm3 (3.9-11.3)
[2025-05-04 07:11] LABS: A/G RATIO 0.7 (1-2); ALANINE AMINOTRANSFERASE,ALT 42.0 U/L (16-63); ASPARTATE AMNIOTRANSFERASE,AST 16.0 U/L (15-37); BILIRUBIN TOTAL 0.3 mg/dL (0.2-1.0); BLOOD UREA NITROGEN,BUN 9.0 mg/dL (7-18); CARBON DIOXIDE,CO2 25.0 mEq/L (21-32); CHLORIDE,CL 108.0 mEq/L (98-107); CREATININE 1.2 mg/dL (0.7-1.3); EST CRCL DRUG DOSING (CG) 96.18 mL/min; ESTIMATED GFR 80.0 mL/min (>60); GLUCOSE RANDOM 102.0 mg/dL (70-99); POTASSIUM,K 4.0 mEq/L (3.5-5.1); PROTEIN TOTAL,TP 7.1 g/dl (6.4-8.2); SODIUM,NA 141.0 mEq/L (136-145)
== END 2025-05-04 09:16 | disposition home or self-care (01) | DRG 244 ==
LOC: JD.ED 09:48 → JD.MS 12:21
PROVIDERS: ADMIT Family Medicine; ATTEND Family Medicine
DX: K57.20 Diverticulitis of large intestine with perforation and abscess without bleeding (principal); F17.200 Nicotine dependence, unspecified, uncomplicated
CPT/HCPCS: 36415; 74177; 74177-26; 76870; 76870-26; 80053; 81001; 83605; 83690; 85025; 86140; 87040; 93975; 96365; 99222; 99231; 99232; 99238; 99285; 99285-25; A9270-GY; J1171; J1650; J1885; J2543; J7030; J7120; Q9967